=== PATIENT | female | born 1960 | race African-American/Black ===

== ENCOUNTER 2020-10-10 21:01 | Emergency (ER) | payer BC, OTHER ==
[2020-10-10 21:09] VITALS: BP 127/85; PULSE 67; TEMP 98; BMI 28.6
[2020-10-10] MEDS ORDERED: ACETAMINOPHEN 1000 MG/100 ML VIAL (NON FORMULARY) IVPB ONE (21:43)
[2020-10-10] MEDS ORDERED: ONDANSETRON 4 MG/2 ML VIAL IVPUSH ONE (21:43)
[2020-10-10] MEDS ORDERED: SODIUM CHLORIDE 0.9% 500 ML INFUS.BAG IV ONE (21:43)
[2020-10-10] MEDS ORDERED: FAMOTIDINE 20 MG/50 ML IVPB 20 MG/50 ML MG IVPB ONE (21:46)
[2020-10-10 21:47] LABS: BASO % 1.1 % (0-2.0); EOS % 0.6 % (0-4.5); HEMATOCRIT 38.7 % (32.4-45.2); HEMOGLOBIN 12.8 GM/dL (10.7-15.3); LYMPH % 14.1 % (8-40); MCH 29.3 pg (25.7-33.7); MCHC 33.1 g/dl (32.0-36.0); MEAN CELL VOLUME 88.5 fl (80-96); MEAN PLT VOLUME 7.7 fl (7.5-11.1); MONO % 3.7 % (3.8-10.2); NEUT % 80.5 % (42.8-82.8); PLATELET COUNT 432 K/MM3 (134-434); RBC 4.37 M/mm3 (3.60-5.2); RDW 13.6 % (11.6-15.6); WHITE BLOOD COUNT 8.5 K/mm3 (4.0-10.0)
[2020-10-10 22:04] LABS: CHLORIDE 104 mmol/L (98-107); POTASSIUM 4.1 mmol/L (3.5-5.1); SODIUM 137 mmol/L (136-145)
[2020-10-10 22:06] LABS: CALCIUM 9.4 mg/dL (8.5-10.1)
[2020-10-10 22:07] LABS: ALBUMIN 3.9 g/dl (3.4-5.0); ANION GAP 4 MMOL/L (8-16); BLOOD UREA NITROGEN 18.2 mg/dL (7-18); CO2 30 mmol/L (21-32); GLUCOSE,RANDOM 116 mg/dL (74-106); LIPASE 33 U/L (73-393); MAGNESIUM 1.8 mg/dL (1.8-2.4)
[2020-10-10 22:10] LABS: CREATININE 1.4 mg/dL (0.55-1.3); SGOT/AST 14 U/L (15-37); SGPT/ALT 15 U/L (13-61)
[2020-10-10 22:11] LABS: BILIRUBIN,TOTAL 0.3 mg/dL (0.2-1); TOT PROT 7.5 g/dl (6.4-8.2)
[2020-10-10 22:13] LABS: ALK PHOS 73 U/L (45-117)
[2020-10-10 23:06] LABS: EPI CELLS >36 /uL (0-25.1); HYALINE CASTS 2 /uL (0-3.1); PH,URINE 8.5 (5.0-8.0); URINE APPEARANCE CLOUDY; URINE BACTERIA 776 /uL (0-1359); URINE BILIRUBIN NEGATIVE (NEGATIVE); URINE COLOR YELLOW; URINE GLUCOSE (UA) NEGATIVE (NEGATIVE); URINE KETONE TRACE (NEGATIVE); URINE LEUK ESTERASE TRACE (NEGATIVE); URINE NITRITE NEGATIVE (NEGATIVE); URINE PROTEIN 1+ (NEGATIVE); URINE RBC 2816 /uL (0-23.9); URINE UROBILINOGEN 0.2 mg/dL (0.2-1.0); URINE WBC 42 /uL (0-25.8)
[2020-10-10] MEDS ORDERED: KETOROLAC TROMETHAMINE 15 MG/ML VIAL IVPUSH ONE (23:58)
[2020-10-11] MEDS ORDERED: KETOROLAC TROMETHAMINE 15 MG/ML VIAL ONE (00:01)
[2020-10-11] MEDS ORDERED: LACTATED RINGERS SOLUTION 1000 ML INFUS.BAG IV ONE (00:45)
== END 2020-10-11 02:16 | disposition home or self-care (01) ==
LOC: JER 21:01
PROC: 3E0333Z Introduction of Anti-inflammatory into Peripheral Vein, Percutaneous Approach (ICD-10-PCS; principal; 2020-10-10)
PROC: 3E033GC Introduction of Other Therapeutic Substance into Peripheral Vein, Percutaneous Approach (ICD-10-PCS; 2020-10-10)
PROC: 3E0333Z Introduction of Anti-inflammatory into Peripheral Vein, Percutaneous Approach (ICD-10-PCS; 2020-10-10)
PROC: 3E033GC Introduction of Other Therapeutic Substance into Peripheral Vein, Percutaneous Approach (ICD-10-PCS; 2020-10-10)
DX: N20.1 Calculus of ureter (principal); K76.89 Other specified diseases of liver
CPT/HCPCS: 36415; 71045-TC-FY; 74176-TC; 80053; 81003; 82550; 83605; 83690; 83735; 84484; 84703; 85025; 85730; 87086; 93005; 93010; 99285-25; C9803; J0131; U0003

== ENCOUNTER 2020-10-31 01:27 | Inpatient (IN) | payer BC, OTHER ==
[2020-10-31 01:46] VITALS: BMI 28.6
[2020-10-31] MEDS ORDERED: ACETAMINOPHEN 325 MG TABLET (FP) PO ONE (01:58)
[2020-10-31] MEDS ORDERED: ACETAMINOPHEN 325 MG TABLET (FP) ONE (02:03)
[2020-10-31 02:24] LABS: EOS % 4.2 % (0-4.5); HEMOGLOBIN 12.7 GM/dL (10.7-15.3); LYMPH % 32.3 % (8-40); MCH 29.2 pg (25.7-33.7); MCHC 33.3 g/dl (32.0-36.0); MEAN CELL VOLUME 87.7 fl (80-96); MEAN PLT VOLUME 7.6 fl (7.5-11.1); MONO % 9.3 % (3.8-10.2); NEUT % 53.2 % (42.8-82.8); PLATELET COUNT 407 K/MM3 (134-434); RBC 4.33 M/mm3 (3.60-5.2); WHITE BLOOD COUNT 6.1 K/mm3 (4.0-10.0)
[2020-10-31 02:28] LABS: EPI CELLS 25 /uL (0-25.1); HCG,QUALITATIVE URINE Negative; HYALINE CASTS 1 /uL (0-3.1); URINE APPEARANCE CLEAR; URINE BACTERIA 1421 /uL (0-1359); URINE BILIRUBIN NEGATIVE (NEGATIVE); URINE COLOR YELLOW; URINE GLUCOSE (UA) NEGATIVE (NEGATIVE); URINE KETONE NEGATIVE (NEGATIVE); URINE LEUK ESTERASE TRACE (NEGATIVE); URINE NITRITE NEGATIVE (NEGATIVE); URINE PROTEIN NEGATIVE (NEGATIVE); URINE RBC 2450 /uL (0-23.9); URINE UROBILINOGEN 0.2 mg/dL (0.2-1.0); URINE WBC 48 /uL (0-25.8)
[2020-10-31 02:35] LABS: POTASSIUM 3.7 mmol/L (3.5-5.1)
[2020-10-31 02:37] LABS: ALBUMIN 3.7 g/dl (3.4-5.0)
[2020-10-31 02:40] LABS: CREATININE 1.1 mg/dL (0.55-1.3)
[2020-10-31 02:43] LABS: BILIRUBIN,TOTAL 0.2 mg/dL (0.2-1); TOT PROT 7.3 g/dl (6.4-8.2)
[2020-10-31] MEDS ORDERED: CEFTRIAXONE 1 GM in DEXTROSE 5%-WATER - 100 ML IVPB ONE (02:43)
[2020-10-31] MEDS ORDERED: KETOROLAC TROMETHAMINE 30 MG/1 ML VIAL IM ONE (02:48)
[2020-10-31] MEDS ORDERED: KETOROLAC TROMETHAMINE 15 MG/ML VIAL IVPUSH ONE (02:52)
[2020-10-31] MEDS ORDERED: KETOROLAC TROMETHAMINE 15 MG/ML VIAL ONE (02:58)
[2020-10-31] MEDS ORDERED: CEFTRIAXONE 1 GM/50 ML BAG ONE ×3 (02:58→09:48)
[2020-10-31] MEDS ORDERED: SODIUM CHLORIDE 0.9% 500 ML INFUS.BAG IV ONE (04:18)
[2020-10-31] MEDS ORDERED: morphine CARPU-JECT 4 MG/1 ML DISP.SYRIN IVPUSH ONE (04:18)
[2020-10-31] MEDS ORDERED: morphine SULFATE 4 MG/ML VIAL ONE (04:26)
[2020-10-31] MEDS ORDERED: ACETAMINOPHEN 1000 MG/100 ML VIAL (NON FORMULARY) IVPB PRN (04:55)
[2020-10-31] MEDS: SODIUM CHLORIDE 1,000 ML IV SCH (05:29)
[2020-10-31] MEDS: HEPARIN NA (PORCINE) 5,000 UNITS/ML 1ML VIAL SQ SCH ×4 (06:15→21:40)
[2020-10-31] MEDS ORDERED: LISINOPRIL 20 MG TABLET ONE (09:48)
[2020-10-31] MEDS ORDERED: TAMSULOSIN HCL 0.4 MG CAP ONE (09:48)
[2020-10-31] MEDS: TAMSULOSIN HCL 0.4 MG CAP PO SCH (09:59)
[2020-10-31] MEDS: CEFTRIAXONE 1 GM in DEXTROSE 5%-WATER - 50 ML IVPB SCH (09:59)
[2020-10-31] MEDS: LISINOPRIL 20 MG TABLET PO SCH (09:59)
[2020-10-31] MEDS ORDERED: HYDROCHLOROTHIAZIDE 12.5 MG CAPSULE (FP) PO SCH (10:00)
[2020-10-31] MEDS ORDERED: CEFTRIAXONE 2 GM in DEXTROSE 5%-WATER 2 GM/100 ML BAG IVPB SCH (10:00)
[2020-10-31 15:47] LABS: BASO % 1.2 % (0-2.0); EOS % 3.1 % (0-4.5); HEMATOCRIT 36.3 % (32.4-45.2); HEMOGLOBIN 12.1 GM/dL (10.7-15.3); LYMPH % 35.7 % (8-40); MCH 29.4 pg (25.7-33.7); MCHC 33.3 g/dl (32.0-36.0); MEAN CELL VOLUME 88.4 fl (80-96); MONO % 7.4 % (3.8-10.2); NEUT % 52.6 % (42.8-82.8); PLATELET COUNT 386 K/MM3 (134-434); RBC 4.11 M/mm3 (3.60-5.2); RDW 13.4 % (11.6-15.6); WHITE BLOOD COUNT 3.6 K/mm3 (4.0-10.0)
[2020-10-31 15:54] LABS: PROTHROMBIN TIME (PATIENT) 12.1 SEC (9.7-13.0)
[2020-10-31 15:56] LABS: ACTIVATED PTT 28.8 SECONDS (25.2-36.5)
[2020-10-31 16:08] LABS: POTASSIUM 3.7 mmol/L (3.5-5.1)
[2020-10-31 16:10] LABS: ALBUMIN 3.1 g/dl (3.4-5.0); BLOOD UREA NITROGEN 17.2 mg/dL (7-18); MAGNESIUM 1.8 mg/dL (1.8-2.4)
[2020-10-31 16:13] LABS: CREATININE 0.9 mg/dL (0.55-1.3); PHOSPHOROUS 2.9 mg/dL (2.5-4.9)
[2020-10-31 16:15] LABS: BILIRUBIN,TOTAL 0.3 mg/dL (0.2-1); TOT PROT 6.1 g/dl (6.4-8.2)
[2020-10-31] MEDS: LORATADINE 10 MG TABLET PO SCH ×2 (21:34→21:40)
[2020-10-31] MEDS ORDERED: MOMETASONE FUROATE 220 MCG/IH INHALER IH SCH (22:00)
[2020-10-31] MEDS ORDERED: MONTELUKAST NA 10 MG TABLET PO SCH (22:00)
[2020-11-01] MEDS: SODIUM CHLORIDE 1,000 ML IV SCH ×2 (01:41→05:21)
[2020-11-01] MEDS: HEPARIN NA (PORCINE) 5,000 UNITS/ML 1ML VIAL SQ SCH ×2 (05:22→14:22)
[2020-11-01] MEDS ORDERED: DEXTROSE 5%-WATER - 50 ML IVPB ONE (09:14)
[2020-11-01] MEDS ORDERED: cefTRIAXone SODIUM 1 GM VIAL ONE (09:14)
[2020-11-01] MEDS: TAMSULOSIN HCL 0.4 MG CAP PO SCH (09:16)
[2020-11-01] MEDS: LISINOPRIL 20 MG TABLET PO SCH (09:16)
[2020-11-01] MEDS: CEFTRIAXONE 1 GM in DEXTROSE 5%-WATER - 50 ML IVPB SCH (09:17)
[2020-11-01 16:15] VITALS: BP 134/75; PULSE 70; TEMP 98
[2020-11-02 14:08] LABS: HEP B CORE AB, TOT Negative (Negative)
== END 2020-11-01 18:23 | disposition home or self-care (01) | DRG 690 ==
LOC: JER 01:27 → JERBED 04:51 → J8W 12:46
PROVIDERS: ADMIT Internal Medicine; ATTEND Internal Medicine
DX: N13.6 Pyonephrosis (principal); K76.9 Liver disease, unspecified; J45.909 Unspecified asthma, uncomplicated; I10 Essential (primary) hypertension; D25.9 Leiomyoma of uterus, unspecified; N39.0 Urinary tract infection, site not specified; N80.0 Endometriosis of uterus
CPT/HCPCS: 36415; 74176-TC; 74183-TC; 76705-TC; 80053; 81003; 82105; 82728; 83516; 83540; 83550; 83735; 84100; 84703; 85025; 85610; 85730; 86038; 86140; 86301; 86704; 86706; 86707; 86708; 86709; 86803; 87086; 87340; 87902; 93005; 93010; 99285-25; A9579; C9803; J1644; U0003; U0005